=== PATIENT | female | born 1945 | race Caucasian/White ===

== ENCOUNTER → 2016-11-03 16:44 | Outpatient (CLI) | payer MEDICARE, OTHER ==
[2014-07-14 11:31] VITALS: BMI 27.5
[~2016-11-03 16:44] MED LIST: HYDROCODONE-APA1 TAB PO
== END | disposition home or self-care (01) ==
LOC: D.MAMMO 10-03 08:30
DX: Z12.31 Encounter for screening mammogram for malignant neoplasm of breast (principal)

== ENCOUNTER → 2017-11-06 17:36 | Outpatient (CLI) | payer MEDICARE, OTHER ==
[2014-07-14 11:31] VITALS: BMI 27.5
== END | disposition home or self-care (01) ==
LOC: D.MAMMO 09:15
DX: Z12.31 Encounter for screening mammogram for malignant neoplasm of breast (principal)

== ENCOUNTER → 2019-05-14 09:00 | Outpatient (CLI) | payer MEDICARE, OTHER ==
[2014-07-14 11:31] VITALS: BMI 27.5
== END | disposition home or self-care (01) ==
LOC: D.MAMMO 09:00
PROVIDERS: ATTEND Nurse Practitioner Family
DX: Z12.31 Encounter for screening mammogram for malignant neoplasm of breast (principal)